=== PATIENT | male | born 2000 | race Caucasian/White ===

== ENCOUNTER 2024-07-22 20:54 | Emergency (ER) | payer SELFPAY ==
[~2024-07-22] VITALS: Ht 177.8 cm; Wt 75.0 kg
[2024-07-22 21:09] VITALS: O2SAT 100
[2024-07-22] MEDS: SODIUM CHLORIDE 0.9% 1,000 ML IV ONE (22:08)
[2024-07-22] MEDS: ACETAMINOPHEN 500MG TABLET PO ONE (22:14)
[2024-07-22 23:22] LABS: HEMATOCRIT. 36.4 % (42.0-52.0); HEMOGLOBIN. 12.2 g/dL (14.0-18.0); MEAN CORPUSCULAR HEMOGLOBIN 29.4 pg (28.0-32.0); MEAN CORPUSCULAR HGB CONC 33.6 g/dL (31.0-37.0); MEAN CORPUSCULAR VOLUME 87.7 fL (80.0-94.0); MEAN PLATELET VOLUME 7.9 fl (7.4-10.4); PLATELET 226 x1000/uL (130-400); RED BLOOD CELL COUNT 4.15 mill/uL (4.7-6.1); RED CELL DISTRIBUTION WIDTH 13.1 % (11.6-14.6); WHITE BLOOD COUNT 13.6 x1000/uL (4.5-11.0)
[2024-07-22 23:34] LABS: DIFFERENTIAL COMMENT 1
[2024-07-22 23:36] LABS: CARBON DIOXIDE 32 mEq/L (21-32); CHLORIDE 109 mEq/L (98-107); SODIUM 145 mEq/L (136-145)
[2024-07-22 23:37] LABS: CALCIUM 9.2 mg/dL (8.7-10.4)
[2024-07-22 23:41] LABS: CREATININE 0.7 mg/dL (0.6-1.3)
[2024-07-22 23:42] LABS: GLUCOSE 130 mg/dL (70-105); UREA NITROGEN BLOOD 15 mg/dL (9-23)
[2024-07-22 23:44] LABS: CREATINE KINASE 236 IU/L (46-171)
[2024-07-23 00:33] VITALS: BP 124/60; PULSE 114; RESP 18; TEMP 36.9; O2SAT 100
[2024-07-23 03:54] LABS: PLATELET ESTIMATE NORMAL
== END 2024-07-23 00:33 | disposition home or self-care (01) ==
LOC: ER 20:54
DX: E86.0 Dehydration (principal); M79.10 Myalgia, unspecified site; Z79.899 Other long term (current) drug therapy; Z88.8 Allergy status to other drugs, medicaments and biological substances
CPT/HCPCS: 99283; 96360; 80048; 82550; 85025; 36415; J7030; 90471